=== PATIENT | female | born 1985 | race Caucasian/White ===

== ENCOUNTER 2017-03-04 14:24 | Inpatient (IN) | payer MEDICAID, OTHER ==
[~2017-03-04] VITALS: Ht 165.1 cm; Wt 87.3 kg
[2017-03-04] MEDS ORDERED: PREN1TAB17 (14:36)
[2017-03-04 14:37] VITALS: Ht 165.1 cm; Wt 87.3 kg
[2017-03-04 14:38] VITALS: BP 120/60
--- NOTE | 2017-03-04 15:17 | RADRPT ---
PROCEDURE: US OB biophysical profile. CLINICAL INDICATION: decreased movements, post dates TECHNIQUE: Multiple sonographic images of the pelvis were obtained. The images were reviewed on a PACS workstation. COMPARISON: No prior studies are available for comparison. FINDINGS: There is a single viable intrauterine gestation. Cardiac activity is present with 139 beats per min kim. There is a vertex presentation. The placenta is anterior. There is no evidence of placental abruption. There is a normal amount of amniotic fluid with an SHARON = 12.8 cm. Biophysical profile: movement 2/2 tone 2/2. breathing 2/2 SHARON 2/2 Total 03/17 RPTAT: AA . IMPRESSION: Normal biophysical profile. . .Brent Santiago MD, Date Time Electronically viewed and signed by .Brent Santiago MD, MD on 03/04/2017 15:17 .S/
--- NOTE | 2017-03-04 16:35 | TRIAGE ---
OB Triage Datetime Report Generated by CPN: 03/04/2017 16:34 Datetime: 03/04/2017 16:11 Labor Evaluation Frequency: 1-5 Monitor Mode: External Duration (sec)2399: 30-60 Pattern: Normal: <= 5 Contractions in 10 Minutes Resting Tone [place]: Relaxed Heart Rate FHR Baseline Rate: 145 Monitor Mode: External US Variability: Moderate 6-25 bpm Accelerations: 15X15 Decelerations: None Category: Category I Datetime: 03/04/2017 15:50 Vaginal Exam Dilatation (cms): 4.5 Effacement (%): 70 Station: -3 Exam By: S. AMY Datetime: 03/04/2017 15:43 Labor Evaluation Frequency: 4-5 Monitor Mode: External Duration (sec)2399: 30-60 Pattern: Normal: <= 5 Contractions in 10 Minutes Resting Tone [place]: Relaxed Heart Rate FHR Baseline Rate: 145 Monitor Mode: External US Accelerations: 15X15 Decelerations: None Category: Category I Pain Assessment Pain Presence: None/Denies Datetime: 03/04/2017 14:46 Stage of : OB Triage Assessment Type: Triage Maternal Assessment Level of Consciousness: Fully Conscious DTR's/Clonus: DTRs 2+; No Clonus Headache: Denies Blurred Vision: No Respiratory Effort: Unlabored; Regular Rhythm; Equal Expansion Breath Sounds, Left: Clear and Equal Breath Sounds, Right: Clear and Equal Nausea/Vomiting: Denies RUQ Epigastric Pain: Denies Lower Extremities Edema: Bilateral Lower Extremities Degree: Pitting Upper Extremities Edema: None Degree: None Facial Edema: None Temperature Route: Oral Fall Risk Assessment History of Falling: (0) No Secondary Diagnosis: (0) No Ambulatory Aid: (0) Bedrest/Nurse Assist IV Therapy: (0) No Gait: (0) Normal/Bedrest/Immobile Mental Status: (0) Oriented to Own Ability Fall Score: 0 Fall Risk Score Definition: No Risk: No action required Labor Evaluation Frequency: X1 Monitor Mode: External Duration (sec)2399: 30-60 Resting Tone [place]: Relaxed Heart Rate FHR Baseline Rate: 135 Monitor Mode: External US Variability: Moderate 6-25 bpm Accelerations: 10X10 Decelerations: None Category: Category I Pain Assessment Pain Presence: None/Denies Pain Type: N/A Pain Location: 0 Pain Goal: 0 Datetime: 03/04/2017 14:29 EGA: 40.1 Datetime: 03/04/2017 14:25 Time of Arrival: 03/04/2017 14:25 Arrived By: Ambulatory Arrived From: Dr. Grover Chief Complaint: SENT FOR NST. BPP FOR POST DATES Movement: Present Contractions: Denies/Absent Rupture of Membranes: Denies Vaginal Bleeding: None Vaginal Discharge: Denies Recent Sexual Intercouse: Denies Abdominal Trauma: Not Applicable Patient Complaints: None Provider Notified: DR. HITCHCOCK Initial Plan: [id number]
[2017-03-04] MEDS ORDERED: LACTATED RINGER'S 1,000 ML IV SCH (17:27)
[2017-03-04] MEDS ORDERED: ACETAMINOPHEN/CODEINE #3 TAB PO PRN (17:30)
[2017-03-04] MEDS ORDERED: LIDOCAINE 1% (MPF) 30 ML INJ INJ PRN (17:30)
[2017-03-04] MEDS ORDERED: IBUPROFEN 600 MG TAB PO PRN (17:30)
[2017-03-04] MEDS ORDERED: BUTORPHANOL 2 MG INJ IV PRN ×2 (17:30)
[2017-03-04] MEDS ORDERED: METHYLERGONOVINE 0.2 MG INJ IM PRN ×2 (17:30→20:30)
[2017-03-04] MEDS ORDERED: OXYTOCIN 30 UNITS/LR 500 ML IV SCH ×2 (17:30)
[2017-03-04] MEDS ORDERED: OXYTOCIN 30 UNITS/LR 500 ML IV PRN ×2 (17:30→20:30)
[2017-03-04] MEDS ORDERED: MISOPROSTOL 200 MCG TAB PR PRN ×2 (17:30→20:30)
[2017-03-04] MEDS ORDERED: CARBOPROST 250 MCG INJ IM PRN ×2 (17:30→20:30)
--- NOTE | 2017-03-04 17:43 | RADRPT ---
PROCEDURE: US OB. CLINICAL INDICATION: Post dates and 40 weeks 1 day gestational age by clinical dates. TECHNIQUE: Multiple sonographic images of the uterus were obtained. The images were revi ewed on a PACS workstation. COMPARISON: No prior studies are available for comparison. FINDINGS: There is a single live intrauterine gestation. heart rate is 148 beats per minute. Measurements were made in order to determine age. The results are as follows: BPD = 9.34 cm. HC = 34.33 cm. AC = 40.96 cm. FL = 7.86 cm. Estimated weight is 4724 +/- 709 grams. LMP growth percentile is greater than 97 %. Menstrual age by ultrasound dates is 39 weeks 2 days. The estimated date of delivery is 03/09/2017. Position is cephalic and placenta is anterior grade II. There is no evidence for an abruption or esther centa previa. IMPRESSION: 1. Single live intrauterine gestation of 39 weeks 2 days menstrual age by ultrasound dates. 2. The estimated date of delivery is 03/09/2017. 3. Estimated weight is 4724 g. RPTAT: QQ .Durga Campos MD, Date Time Electronically viewed and signed by .Durga Campos MD, on 03/04/2017 17:43 .R/
[2017-03-04 18:00] LABS: BASOPHILS % 0.6 % (0.0-2.0); EOSINOPHILS # 0.2 10^3/ul (0.0-0.5); EOSINOPHILS % 2.2 % (0.0-7.0); HEMATOCRIT 33.3 % (37.0-47.0); HEMOGLOBIN 11.6 g/dl (12.0-16.0); LYMPHOCYTES # 1.4 10^3/ul (0.8-2.9); MEAN CORPUSCULAR HEMOGLOBIN 31.8 pg (29.0-33.0); MEAN CORPUSCULAR HGB CONC 34.8 g/dl (32.0-37.0); MEAN CORPUSCULAR VOLUME 91.2 fl (82.0-101.0); MEAN PLATELET VOLUME 10.1 fl (7.4-10.4); MONOCYTE # 0.7 10^3/ul (0.3-0.9); NEUTROPHIL # 4.4 10^3/ul (1.6-7.5); NEUTROPHILS % 65.5 % (39.0-77.0); PLATELET COUNT 227 10^3/UL (140-415); RED BLOOD COUNT 3.65 10^6/ul (4.20-5.40); RED CELL DISTRIBUTION WIDTH 13.2 % (11.5-14.5); WHITE BLOOD COUNT 6.7 10^3/ul (4.8-10.8)
[2017-03-04 18:20] LABS: INR 0.88; PARTIAL THROMBOPLASTIN TIME 25.8 Sec (25.0-35.0); PROTIME 11.9 Sec (12.2-14.2); PT RATIO 0.9
[2017-03-04] MEDS ORDERED: ONDANSETRON 4 MG INJ IV STA (18:49)
[2017-03-04] MEDS ORDERED: CEFAZOLIN 2 GM/50 ML (PMX) 50 ML IV SCH (19:00)
[2017-03-04] MEDS ORDERED: CITRIC ACID/NA CITRATE 30 ML CUP PO ONE (19:00)
[2017-03-04] MEDS ORDERED: LACTATED RINGER'S 1,000 ML IV PRN (19:00)
--- NOTE | 2017-03-04 19:01 | HP ---
Date/Time of Note Date/Time of Note DATE: 03/04/17 TIME: 18:54 Assessment/Plan VTE Prophylaxis VTE Prophylaxis Intervention: SCD's Assessment/Plan Assessment/Plan iup at 40 wks ga, in labor, suspected macrosomia, desires elective CD HPI/ROS Admit Date/Time Admit Date/Time Mar 04, 2017 at 16:32 Hx of Present Illness 31 yo EDC 03/03/17 iup at 40 wks ga, in labor, Ultrasound approx 4,700 grams. after R/B/A explained Desire elective CD ROS Constitutional: improved, no complaints Eyes: no complaints ENT: no complaints Respiratory: no complaints Cardiovascular: no complaints Gastrointestinal: no complaints Genitourinary: no complaints Musculoskeletal: no complaints Skin: no complaints Neurologic: no complaints Endocrine: no complaints Lymphatic: no complaints Psychological: nl mood/affect, no complaints Immunologic: no complaints PMH/Family/Social Past Medical History Medical History: no pertinent history Past Surgical History Past Surgical Hx: no surgical history Family History Significant Family History: no pertinent family hx Social History Alcohol Use: none Smoking Status: Never smoker Drug Use: none Exam/Review of Systems Vital Signs Vitals Vital Signs Date Time Temp Pulse Resp B/P Pulse Ox O2 Delivery O2 Flow Rate FiO2 03/04/17 14:38 97.8 120/60 Exam Constitutional: alert, oriented, well developed Psych: nl mood/affect, no complaints Head: atraumatic, normocephalic Eyes: EOMI, PERRL, nl conjunctiva, nl lids, nl sclera ENMT: nl external ears & nose, nl lips & teeth, nl nasal mucosa & septum Neck: non-tender, supple Respiratory: clear to auscultation, normal air movement Cardiovascular: nl pulses, regular rate and rhythm Gastrointestinal: nl liver, spleen, non-tender, soft Genitourinary - Female: other (ve 4-5/80/-2) Musculoskeletal: nl extremities to inspection Extremities: normal pulses Labs Result Diagram: 03/04/17 1738 Medications Medications Current Medications Lactated Ringer's (Lr) 1,000 ml @ 125 mls/hr Q8H IV Last administered on t 17:43; Admin Dose 125 MLS/HR; Start 03/04/17 at 17:27 Butorphanol Tartrate (Stadol) 1 mg Q2H PRN IV PAIN; Start 03/04/17 at 17:30 Butorphanol Tartrate (Stadol) 2 mg Q2H PRN IV PAIN; Start 03/04/17 at 17:30 Lidocaine 30 ml 30 ml ONCE PRN INJ EPISIOTOMY/TEARING; Start 03/04/17 at 17:30 Oxytocin/Lactated Ringer's 500 ml @ 125 mls/hr ONCE IV ; Start 03/04/17 at 17: 30 Ibuprofen (Motrin) 600 mg ONCE PRN PO Mild Pain (Pain Score 1-3); Start at 17:30 Acetaminophen/ Codeine Phosphate 2 tab 2 tab ONCE PRN PO Moderate to Severe Pain (4-10); Start 03/04/17 at 17:30 Lactated Ringer's 1,000 ml @ 2,000 mls/hr Q30M PRN IV PRE-EPIDURAL BOLUS; Start 03/04/17 at 19:00 Oxytocin/Lactated Ringer's 500 ml @ 0 mls/hr ONCE PRN IV For Hemorrhage Management; Start 03/04/17 at 17:30 Methylergonovine Maleate (Methergine) 0.2 mg ONCE PRN IM VAGINAL BLEEDING; Start 03/04/17 at 17:30 Carboprost Tromethamine (Hemabate) 250 mcg ONCE PRN IM VAGINAL BLEEDING; Start 03/04/17 at 17:30 Misoprostol 1000 mcg 1,000 mcg ONCE PRN GA VAGINAL BLEEDING; Start 03/04/17 at 17:30 Cefazolin Sodium/ Dextrose (Ancef 2 Gm/50 ml (Pmx)) 50 ml @ 100 mls/hr ONCE IV ; Start 03/04/17 at 19:00; Status UNV Citric Acid/ Sodium Citrate (Bicitra) 30 ml ONCE ONCE PO ; Start 03/04/17 at 19 :00; Stop 03/04/17 at 19:01; Status UNV DI MEDINA MD Mar 04, 2017 19:01
[2017-03-04] MEDS ORDERED: FENTAnyl 50 MCG/ML VIAL ONE (19:33)
[2017-03-04] MEDS ORDERED: morphine SULFATE/PF (10 MG/10 ML) INJ ONE (19:33)
[2017-03-04] MEDS ORDERED: METOCLOPRAMIDE 10 MG INJ ONE (19:33)
[2017-03-04] MEDS ORDERED: PHENYLephrine (100 MCG/ML) 5ML SYG ONE (19:33)
[2017-03-04] MEDS ORDERED: OXYTOCIN 10 UNIT INJ ONE (19:33)
[2017-03-04] MEDS ORDERED: DEXAMETHASONE 4 MG/ML 1 ML INJ ONE (20:10)
[2017-03-04] MEDS ORDERED: LANOLIN 7 GM TUBE TOP PRN (20:30)
[2017-03-04] MEDS ORDERED: OXYCODONE/ACETAMINOPHEN (5/325) TAB PO PRN ×4 (20:30→23:00)
[2017-03-04] MEDS: SENNA/DOCUSATE NA (8.6MG/50MG) TAB PO SCH (21:00)
[2017-03-04] MEDS ORDERED: KETOROLAC 30 MG INJ ONE (22:53)
[2017-03-04] MEDS: KETOROLAC 30 MG INJ IV PRN (22:55)
[2017-03-04] MEDS ORDERED: FENTAnyl 50 MCG/ML VIAL IV PRN ×3 (23:00)
[2017-03-04] MEDS ORDERED: ALBUTEROL 0.083% (NEB) 2.5 MG/3 ML AMP HHN PRN (23:00)
[2017-03-04] MEDS ORDERED: hydrALAzine 20 MG INJ IV PRN (23:00)
[2017-03-04] MEDS ORDERED: TRIMETHOBENZAMIDE 100 MG/ML VIAL IM PRN ×2 (23:00)
[2017-03-04] MEDS ORDERED: ONDANSETRON 4 MG INJ IV PRN ×2 (23:00)
[2017-03-04] MEDS ORDERED: MEPERIDINE 25 MG INJ IV PRN (23:00)
[2017-03-04] MEDS ORDERED: EPHEDrine SULFATE 50 MG/5 ML SYG IV PRN (23:00)
[2017-03-04] MEDS ORDERED: morphine 2 MG INJ IV PRN ×2 (23:00)
[2017-03-04] MEDS ORDERED: DIPHENHYDRAMINE 50 MG INJ IV PRN ×2 (23:00)
[2017-03-04] MEDS ORDERED: HYDROmorphONE (0.2 MG/ML) 10ML SYG IV PRN ×3 (23:00)
[2017-03-04] MEDS ORDERED: NALOXONE (0.4 MG/ML) INJ IV PRN (23:00)
[2017-03-04] MEDS ORDERED: LABETALOL HCL 20MG INJ IV PRN (23:00)
[2017-03-04] MEDS ORDERED: IPRATROPIUM (NEB) 0.5 MG/2.5 ML AMP HHN PRN (23:00)
[2017-03-04 23:15] VITALS: BP 111/69; PULSE 79; RESP 20
[2017-03-05] MEDS: CEFAZOLIN 2 GM/50 ML (PMX) 50 ML IV SCH ×3 (00:01→12:14)
[2017-03-05] MEDS: LACTATED RINGER'S 1,000 ML IV SCH ×4 (00:02→20:29)
[2017-03-05 03:40] VITALS: BP 120/64; PULSE 75; RESP 20
[2017-03-05] MEDS: KETOROLAC 30 MG INJ IV PRN ×2 (04:42→17:16)
[2017-03-05] MEDS: IBUPROFEN 600 MG TAB PO SCH ×5 (06:00→23:57)
[2017-03-05 08:00] VITALS: BP 96/53; PULSE 92; RESP 18
[2017-03-05] MEDS: SENNA/DOCUSATE NA (8.6MG/50MG) TAB PO SCH ×2 (08:33→21:00)
--- NOTE | 2017-03-05 08:51 | OPR ---
Operative Report Planned Procedure Free Text/Dictation DATE OF OPERATION: 03/04/2017 PRIMARY DIAGNOSES: 1. A 31-year-old 1, para 0, intrauterine at 40 weeks gestational age. 2. Suspected macrosomia 3. Desires elective delivery. POSTOPERATIVE DIAGNOSES: 1. Same OPERATION PERFORMED: Primary low transverse delivery via Pfannenstiel incision. SURGEON: Di Medina MD PATIENT SERVICES MANAGER: Dr. Evy Ortiz ANESTHESIA: Spinal. COMPLICATIONS: None. ESTIMATED BLOOD LOSS: 500 mL. FINDINGS: A viable female, 8 and 9 respectively at 1 and 5 minutes, weight 9 pounds 6 ounces. Normal uterus, tubes and ovaries. DESCRIPTION OF PROCEDURE: After explaining the risks, benefits and alternatives , the patient and consent signed in chart, the patient was taken to the operating room where spinal anesthesia was found to be adequate. She was then prepared and draped in normal sterile fashion in dorsal supine position with a leftward tilt. A Pfannenstiel skin incision was then made with a scalpel and carried to the underlying layer of the fascia. The fascia was incised in the midline and the incision was extended laterally with Vega scissors. The superior aspect of the fascial incision was grasped with curved clamps, elevated and the underlying rectus muscles dissected off bluntly. Attention was then turned to the inferior aspect of the incision which in similar fashion was grasped, tented up with curved clamps and the rectus muscles dissected off bluntly. The rectus muscle was in midline, peritoneum identified, tented up and entered sharply with Metzenbaum scissors. The peritoneal incision was extended superiorly inferiorly with good visualization of bladder. The bladder blade was then inserted and the vesicouterine peritoneum identified, grasped with pickups and entered sharply with Metzenbaum scissors. The incision was extended laterally and a bladder flap created digitally. The bladder blade was then reinserted and the lower segment incised in transverse fashion with a scalpel. The uterine incision was extended laterally. The bladder blade was removed and the infant's head delivered atraumatically. The nose and mouth were suctioned and cord clamped and cut/delayed. The infant was handed off to awaiting mft. The placenta was removed. The uterus was exteriorized and cleared of all clots and debris. The uterine incision was repaired with 1-0 chromic in a running locked fashion. A second layer of same suture was used for imbrication and obtained excellent hemostasis. The uterus was returned to the abdomen. The gutters were cleared of all clots. The peritoneum and rectus abdominis muscles were reapproximated with 3-0 Vicryl in interrupted fashion. The fascia was reapproximated with 0 Vicryl in a running fashion. The skin was closed with travis. The patient tolerated procedure well. Sponge, lap and needle counts correct x2. The patient was taken to recovery room in stable condition. Procedure date Mar 04, 2017 Anesthesia Type: spinal Procedure Description Under satisfactory [] anesthesia, the patient was prepped and draped and placed in a supine position, tilted to the left. Pfannenstiel incision was made, carried through the subcutaneous tissue. Bleeders brought under control with electrocautery. Fascia incised to the length of the incision. Rectus muscles from the fascia, divided midline. Peritoneum exposed, entered through a transverse incision. Exploration of abdomen revealed gravid uterus. Bladder flap was developed. Transverse incision was made in the lower segment of the uterus. Amniotic sac ruptured. [] amniotic fluid noted. [] Nasal oropharyngeal suction was performed. The baby was handed to the team for immediate attention. The placenta was delivered manually intact. Uterine cavity was cleaned with wet sponge and drainage established. Uterus closed in 2 layers using [] in continuous fashion. Peritoneal cavity irrigated with warm saline. Sponge, needle and instrument count reported to be correct. Abdominal peritoneum closed with [] continuously. Rectus muscle approximated with []. Fascia closed with [], and skin closed with travis. Estimated blood loss []mL. Urine bag contained []mL of urine Post-Procedure Findings: Live Baby [], Apgars [] and [], weight [], position [], [] presentation []cord. Physician Certification I, the undersigned physician, hereby certify that I have discussed the procedure described in this consent form with this patient (or the patient's legal sales representative), including: * The risk and benefits of the procedure; * Any adverse reactions that may reasonably be expected to occur; * Any alternative efficacious methods of treatment which may be medically viable ; * The potential problems that may occur during recuperation; * Potential for blood transfusion and associated risks/benefits; and * Any research or economic interest I may have regarding this treatment. I further certify that the patient/legally responsible person was encouraged to ask question and that all questions were answered. DI MEDINA MD Mar 05, 2017 08:51
[2017-03-05 10:29] LABS: BASOPHILS % 0.3 % (0.0-2.0); EOSINOPHILS # 0.1 10^3/ul (0.0-0.5); EOSINOPHILS % 1.5 % (0.0-7.0); HEMATOCRIT 27.1 % (37.0-47.0); HEMOGLOBIN 9.2 g/dl (12.0-16.0); LYMPHOCYTES # 1.1 10^3/ul (0.8-2.9); LYMPHOCYTES % 12.1 % (15.0-51.0); MEAN CORPUSCULAR HEMOGLOBIN 30.8 pg (29.0-33.0); MEAN CORPUSCULAR HGB CONC 33.9 g/dl (32.0-37.0); MEAN CORPUSCULAR VOLUME 90.6 fl (82.0-101.0); MEAN PLATELET VOLUME 10.1 fl (7.4-10.4); MONOCYTE # 0.8 10^3/ul (0.3-0.9); MONOCYTES % 8.8 % (0.0-11.0); NEUTROPHIL # 6.8 10^3/ul (1.6-7.5); NEUTROPHILS % 76.8 % (39.0-77.0); PLATELET COUNT 174 10^3/UL (140-415); RED BLOOD COUNT 2.99 10^6/ul (4.20-5.40); RED CELL DISTRIBUTION WIDTH 13.4 % (11.5-14.5); WHITE BLOOD COUNT 8.8 10^3/ul (4.8-10.8)
[2017-03-05 12:00] VITALS: BP 100/56; PULSE 87; RESP 18
[2017-03-05 16:13] VITALS: BP 100/48; PULSE 89; RESP 20
[2017-03-05 20:30] VITALS: BP 121/72; PULSE 86; RESP 18
[2017-03-05] MEDS: FERROUS SULFATE (EC) 325 MG TAB PO SCH (21:02)
[2017-03-06 04:00] VITALS: BP 102/58; PULSE 72; RESP 18
[2017-03-06] MEDS: IBUPROFEN 600 MG TAB PO SCH ×4 (05:31→23:59)
[2017-03-06 09:00] VITALS: BP 102/57; PULSE 70; RESP 16
[2017-03-06] MEDS: FERROUS SULFATE (EC) 325 MG TAB PO SCH ×2 (09:34→21:11)
[2017-03-06] MEDS: SENNA/DOCUSATE NA (8.6MG/50MG) TAB PO SCH ×2 (09:34→21:11)
[2017-03-06 16:15] VITALS: BP 119/82; PULSE 89; RESP 15
--- NOTE | 2017-03-06 18:32 | DS ---
Date/Time of Note Date/Time of Note DATE: 03/06/17 TIME: 18:28 Obstetrical Discharge Record Final Diagnosis Final Diagnosis: Term delivered Other Final Diagnosis iup at term suspected macrosomia Vaginal Delivery Other Delivery information CD Section Section: Primary Complications Other (macrosomia) Augmentation: No Induction: No Condition on Discharge Physical Assessment Voiding: Yes Bowel Movement: Yes Breast: Soft, non-tender, Filling Fundus: Firm Abdomen and Incision: soft nt c/d/i no distention, travis intact Calf Tenderness: No Patient Condition: Fair DI MEDINA MD Mar 06, 2017 18:32
--- NOTE | 2017-03-06 18:33 | PD.PPDC ---
RECEIPT AND REPORT CLERK Discharge Instruction Condition Patient Condition: Fair Diet Diet: Resume Regular Diet Activity/Restrictions Activity: Normal Activity May Shower Restrictions: No Exercising No Lifting No Driving No Sexual Activity Nothing in the Vagina No [place] No Tampons, douche Follow-up Follow-up with Physician: 4 Provider Information: f/u clinic this to remove travis Return to clinic for [employer] Instructions: Fever greater than 101 Chills Worsening abdominal pain Excessive Vaginal Bleeding More than 2 pads per hour Unable to tolerate diet OB Instructions: Breast Tenderness Depression Blurried Vision Headache Surgical Instructions: Incisional Drainage Incisional Redness DI MEDINA MD Mar 06, 2017 18:33
[2017-03-06 20:10] VITALS: BP 102/61; PULSE 74; RESP 18
[2017-03-07 04:00] VITALS: BP 106/51; PULSE 67; RESP 18
[2017-03-07] MEDS: IBUPROFEN 600 MG TAB PO SCH ×3 (05:38→17:47)
[2017-03-07 08:30] VITALS: BP 104/64; PULSE 61; RESP 17
[2017-03-07] MEDS: FERROUS SULFATE (EC) 325 MG TAB PO SCH (08:56)
[2017-03-07] MEDS: SENNA/DOCUSATE NA (8.6MG/50MG) TAB PO SCH (08:57)
[2017-03-07 16:00] VITALS: BP 95/58; PULSE 61; RESP 17
== END 2017-03-07 18:30 | disposition home or self-care (01) | DRG 766 ==
LOC: OBT 14:24 → L-D 14:25 → OBT 16:32 → L-D 19:33 → PP1 23:13
PROVIDERS: ADMIT Obstetrics & Gynecology; ATTEND Obstetrics & Gynecology
PROC: 10D00Z1 Extraction of Products of Conception, Low, Open Approach (ICD-10-PCS; principal; 2017-03-04 20:00)
DX: O48.0 Post-term pregnancy (principal); O36.63X0 Maternal care for excessive fetal growth, third trimester, not applicable or unspecified; Z3A.40 40 weeks gestation of pregnancy; Z37.0 Single live birth
CPT/HCPCS: 76815; 76818; 85025; 85610; 85730; 86592; 86900; 86901; 87340; 99464; G0463; J0690; J1100; J1885; J2210; J2274; J2370; J2405; J2590; J2765; J3010; J7120